=== PATIENT | male | born 1990 | race Caucasian/White ===

== ENCOUNTER 2022-07-18 03:24 | Emergency (ER) | payer SELFPAY | END 2022-07-18 04:30 | disposition home or self-care (01) | LOC: JD.ED 03:24 | DX: S63.501A Unspecified sprain of right wrist, initial encounter (principal); F17.210 Nicotine dependence, cigarettes, uncomplicated; Z86.16 Personal history of COVID-19 | CPT/HCPCS: 99283 ==

== ENCOUNTER 2024-05-04 00:11 | Emergency (ER) | payer SELFPAY ==
[2024-05-04 01:01] LABS: BASOPHILS PERCENT AUTO 0.4 % (0.0-1.0); EOSINOPHILS ABSOLUTE AUTO 0.1 K/mm3 (0.0-0.4); EOSINOPHILS PERCENT AUTO 0.7 % (0.0-6.0); HEMATOCRIT 32.5 % (42.0-52.0); HEMOGLOBIN 10.5 gm/dl (14.0-18.0); IMMATURE GRAN ABSOLUTE AUTO 0.04 K/mm3 (0.00-0.05); IMMATURE GRAN PERCENT AUTO 0.4 % (0.0-0.4); LYMPHOCYTES ABSOLUTE AUTO 1.6 K/mm3 (1.0-4.8); LYMPHOCYTES PERCENT AUTO 14.5 % (24.0-44.0); MEAN CORPUSCULAR HEMOGLOBIN 28.5 pg (28.0-32.0); MEAN CORPUSCULAR HGB CONC 32.3 g/dl (32.0-36.0); MEAN CORPUSCULAR VOLUME 88.3 fl (83.0-99.0); MEAN PLATELET VOLUME 9.4 fl (9.4-12.4); MONOCYTES ABSOLUTE AUTO 1.2 K/mm3 (0.0-0.8); NEUTROPHILS ABSOLUTE AUTO 8.1 K/mm3 (1.8-7.7); PLATELET COUNT,PLT 385 K/mm3 (150-400); RED BLOOD CELL COUNT 3.68 M/mm3 (4.52-5.90); WHITE BLOOD CELL COUNT,WBC 11.13 K/mm3 (3.9-11.3)
[2024-05-04 01:22] LABS: A/G RATIO 0.6 (1-2); ALBUMIN 2.5 g/dl (3.4-5.0); ANION GAP 12.6 (5-15); BILIRUBIN TOTAL 0.2 mg/dL (0.2-1.0); CALCIUM 8.7 mg/dL (8.5-10.1); CREATININE 1.2 mg/dL (0.7-1.3); EST CRCL DRUG DOSING (CG) 81.19 mL/min; POTASSIUM,K 3.6 mEq/L (3.5-5.1); PROTEIN TOTAL,TP 6.9 g/dl (6.4-8.2)
[2024-05-04 01:27] LABS: LACTIC ACID 1.9 mmol/L (0.4-2.0)
[2024-05-04] MEDS: Sodium Chloride 0.9% 10 ML Syringe FLUSH PRN (01:37)
[2024-05-04] MEDS: Iopamidol 612 MG/ML 100 ML Bottle IVPUSH ONE (01:37)
[2024-05-04] MEDS: cefTRIAXone 2 GM in Sodium Chloride 0.9% 100 ML IV ONE (02:11)
[2024-05-04] MEDS: Sodium Chloride 0.9% 10 ML Syringe FLUSH ONE (02:14)
[2024-05-04] MEDS: HYDROmorphone 0.5 MG/0.5 ML Syringe IVPUSH ONE (02:25)
[2024-05-04] MEDS: Lidocaine 1% 10 ML MDV INJECT ONE (03:37)
[2024-05-04] MEDS: Lidocaine/Epineph/Tetracaine 3 ML Syringe TOP ONE (03:37)
[2024-05-04] MEDS: fentaNYL 100 MCG/2 ML SDV IVPUSH ONE (03:45)
== END 2024-05-04 05:12 | disposition home or self-care (01) ==
LOC: JD.ED 00:11
DX: S02.601B Fracture of unspecified part of body of right mandible, initial encounter for open fracture (principal); L02.01 Cutaneous abscess of face; F17.210 Nicotine dependence, cigarettes, uncomplicated; Y04.8XXA Assault by other bodily force, initial encounter; Z86.16 Personal history of COVID-19
CPT/HCPCS: 10060; 36415; 70450; 70486; 70491; 80053; 83605; 85025; 87040; 87070; 87075; 87205; 96365; 96375; 99284; A9270; J0696; J1170; J3010; J3490; Q9967